=== PATIENT | female | born 1995 | race Caucasian/White ===

== ENCOUNTER → 2017-12-01 | Outpatient (CLI) | payer OTHER | LOC: CFH 12:28 | PROVIDERS: ATTEND Pediatrics | DX: R10.31 Right lower quadrant pain (principal); R10.84 Generalized abdominal pain | CPT/HCPCS: 76700; 76830 ==

== ENCOUNTER → 2017-12-02 | Outpatient (CLI) | payer OTHER | LOC: PETCFH 12:37 | PROVIDERS: ATTEND Pediatrics | DX: R10.84 Generalized abdominal pain (principal) | CPT/HCPCS: 78227; A9537 ==

== ENCOUNTER → 2017-12-03 | Outpatient (CLI) | payer OTHER ==
[~2017-12-03] MED LIST: OMNIPAQUE 350 MG/ML, 100ML BOTTLE ONE
== END | disposition home or self-care (01) ==
LOC: CFH 10:06
PROVIDERS: ATTEND Pediatrics
DX: R59.0 Localized enlarged lymph nodes (principal)
CPT/HCPCS: 74160; Q9967